=== PATIENT | male | born 1965 | race African-American/Black ===

== ENCOUNTER 2019-03-02 11:12 | Emergency (ER) | payer SELFPAY ==
--- NOTE | 2019-03-02 11:55 | EDM.PDOC ---
ED HPI GENERAL MEDICAL PROBLEM - General Chief Complaint: Head Injury Stated Complaint: FELL AND HIT HEAD Time Seen by Provider: 03/02/19 11:24 Source of Information: Reports: Patient, RN Notes Reviewed - History of Present Illness INITIAL COMMENTS - FREE TEXT/NARRATIVE: 53 year old male fell and hit his head 8 days ago. Slipped on ice, fell backwards hitting back of head. Mild Arce for a day or 2 but that is gone. However the last few days when he coughs he feels discomfort R superior scalp. Otherwise no Arce, dizziness, nausea, vomiting, visual, balance or memory problems. 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 He has hx of Htn "forever", on 4 different meds. He knows one is lisinopril, not sure what the other meds area. States his BP is normally high, "difficulty to control" Right Head Pain Score (Numeric/FACES): 9 - Related Data Allergies Allergy/AdvReac Type Severity Reaction Status Date / Time No Known Allergies Allergy Verified 03/02/19 11:27 Home Meds: Home Meds . [Unable to Verify Home Med List] 03/02/19 [History] Past Medical History Cardiovascular History: Reports: Hypertension Social & Family History - Tobacco Use Smoking Status *Q: Never Smoker - Caffeine Use Caffeine Use: Reports: Coffee - Recreational Drug Use Recreational Drug Use: No ED ROS GENERAL - Review of Systems Review Of Systems: See Below Constitutional: Denies: Fever, Chills, Diaphoresis HEENT: Denies: Ear Discharge, Ear Pain, Sinus Problem, Vertigo, Vision Change Respiratory: Denies: Shortness of Breath Cardiovascular: Denies: Chest Pain GI/Abdominal: Denies: Abdominal Pain, Nausea, Vomiting Musculoskeletal: Denies: Neck Pain, Shoulder Pain, Arm Pain, Back Pain Skin: Reports: No Symptoms Neurological: Reports: Headache (R superior scalp area, only with coughing). Denies: Dizziness, Numbness, Syncope, Tingling, Trouble Speaking, Difficulty Walking, Weakness, Change in Speech, Gait Disturbance ED EXAM, HEAD INJURY - Physical Exam Exam: See Below General Appearance: Alert, No Apparent Distress Head: Atraumatic. No: Scalp Swelling, Scalp Tenderness, Facial Swelling, Facial Tenderness, Raccoon Eyes Eyes: Bilateral Eye: PERRL Throat/Mouth: Normal Inspection, Normal Oropharynx Neck: Full Range of Motion Respiratory: No Respiratory Distress, Lungs Clear, Normal Breath Sounds Cardiovascular: Regular Rate, Rhythm GI/Abdominal Exam: Soft, Non-Tender Extremities: Normal Inspection, Normal Range of Motion Neurologic: No Motor/Sensory Deficits, Normal Mood/Affect, Oriented x 3, Other ( finger to nose nl) Course - Vital Signs Last Recorded V/S: Last Vital Signs Temp 98.4 F 03/02/19 11:24 Pulse 78 03/02/19 11:24 Resp 20 03/02/19 11:24 BP 181/112 H 03/02/19 11:24 Pulse Ox 99 03/02/19 11:24 - Re-Assessments/Exams Free Text/Narrative Re-Assessment/Exam: 03/02/19 15:03 No evidence for concussion today, scalp, head, face nontender. Imaging not clnically indicated today. I am more concerned about his Htn, Readings are all somewhat high in the 180 105-110 range. He as noted states he "always runs high so this isn't totally new. He has had fairly recent labs. We need to know what his BP is running over time. He is in no distress today. Discharge instr. as documented. Departure - Departure Time of Disposition: 11:53 Disposition: Home, Self-Care 01 Condition: Fair Clinical Impression: Fall, Scalp contusion, Hypertension - Discharge Information Instructions: Hypertension, [id number] Referrals: Thi Chavez NP [Primary Care Provider] - Forms: ED Department Discharge Additional Instructions: Continue current medications for now. Tylenol 1000 mg q 6 to 8 hr as needed for scalp discomfort. Try check you blood pressure at least once or twice daily , keep a record for Anna Chavez. Follow up clinic with Thi in about 7 to 10 days, call for appointment. Bring the record of your blood pressure readings for that appointment.
== END 2019-03-02 12:00 | disposition home or self-care (01) ==
LOC: JD.ED 11:12
DX: S00.03XA Contusion of scalp, initial encounter (principal); I10 Essential (primary) hypertension; W01.10XA Fall on same level from slipping, tripping and stumbling with subsequent striking against unspecified object, initial encounter
CPT/HCPCS: 99282; 99283

== ENCOUNTER 2021-09-14 07:33 | Emergency (ER) | payer MEDICAID, OTHER ==
[2021-09-14] MEDS ORDERED: Sodium Chloride 0.9% 10 ML Syringe FLUSH PRN (07:58)
[2021-09-14] MEDS ORDERED: hydrALAZINE 20 MG/ML SDV IVPUSH ONE (09:00)
[2021-09-14] MEDS ORDERED: Furosemide 40 MG/4 ML VIAL IVPUSH ONE (09:00)
[2021-09-14] MEDS ORDERED: amLODIPine 10 MG Tab PO ONE (09:01)
[2021-09-14 09:28] LABS: ESTIMATED GFR 71 mL/min (>60)
[2021-09-14 11:00] LABS: HEMOGLOBIN A1C 6.5 %
[2021-09-14] MEDS ORDERED: Enalaprilat 1.25 MG/ML SDV IVPUSH ONE (11:48)
== END 2021-09-14 12:15 | disposition home or self-care (01) ==
LOC: JD.ED 07:33
DX: I11.0 Hypertensive heart disease with heart failure (principal); I50.9 Heart failure, unspecified; Z79.899 Other long term (current) drug therapy
CPT/HCPCS: 36415; 71045; 80053; 81001; 83036; 83735; 83880; 84484; 85025; 85379; 85610; 85730; 86140; 93005; 96374; 96375; 99285; A9270; J0360; J1940; J3490; 93010; 99284

== ENCOUNTER 2022-10-17 04:32 | Emergency (ER) | payer SELFPAY ==
[2022-10-17] MEDS ORDERED: Albuterol/Ipratropium 3.0-0.5 MG/3 ML Neb Soln NEB ONE (05:06)
[2022-10-17] MEDS ORDERED: Furosemide 40 MG/4 ML VIAL IVPUSH ONE (05:09)
[2022-10-17 06:18] LABS: BASOPHILS ABSOLUTE AUTO 0.02 K/mm3 (0.01-0.08); BASOPHILS PERCENT AUTO 0.5 % (0.1-1.2); EOSINOPHILS ABSOLUTE AUTO 0.13 K/mm3 (0.04-0.54); HEMATOCRIT 38.9 % (40.1-51.0); HEMOGLOBIN 12.8 gm/dl (13.7-17.5); IMMATURE GRAN ABSOLUTE AUTO 0.01 K/mm3 (0.00-0.10); IMMATURE GRAN PERCENT AUTO 0.2 % (<=1.0); LYMPHOCYTES ABSOLUTE AUTO 2.04 K/mm3 (1.32-3.57); LYMPHOCYTES PERCENT AUTO 47.6 % (21.8-53.1); MEAN CORPUSCULAR HEMOGLOBIN 28.8 pg (25.7-32.2); MEAN CORPUSCULAR HGB CONC 32.9 g/dl (32.2-35.5); MEAN CORPUSCULAR VOLUME 87.4 fl (79.0-92.2); MONOCYTES ABSOLUTE AUTO 0.42 K/mm3 (0.30-0.82); MONOCYTES PERCENT AUTO 9.8 % (5.3-12.2); NEUTROPHILS ABSOLUTE AUTO 1.67 K/mm3 (1.78-5.38); NEUTROPHILS PERCENT AUTO 38.9 % (34.0-67.9); PLATELET COUNT,PLT 220 K/mm3 (163-337); RED BLOOD CELL COUNT 4.45 M/mm3 (4.63-6.08); WHITE BLOOD CELL COUNT,WBC 4.29 K/mm3 (4.23-9.07)
[2022-10-17 06:32] LABS: A/G RATIO 0.9 (1-2); ALBUMIN 3.6 g/dl (3.4-5.0); ANION GAP 12.6 (5-15); BILIRUBIN TOTAL 0.6 mg/dL (0.2-1.0); BUN/CREATININE RATIO 12.5 (14-18); CALCIUM 8.5 mg/dL (8.5-10.1); CREATININE 1.2 mg/dL (0.7-1.3); EST CRCL DRUG DOSING (CG) 81.17 mL/min; POTASSIUM,K 3.6 mEq/L (3.5-5.1); PROTEIN TOTAL,TP 7.6 g/dl (6.4-8.2)
== END 2022-10-17 07:25 | disposition home or self-care (01) ==
LOC: JD.ED 04:32
DX: I11.0 Hypertensive heart disease with heart failure (principal); I50.9 Heart failure, unspecified; E11.9 Type 2 diabetes mellitus without complications; Z79.899 Other long term (current) drug therapy
CPT/HCPCS: 36415; 71045; 80053; 83880; 84484; 85025; 93005; 94640; 96374; 99284; J1940; 93010; J7620-GY